=== PATIENT | female | born 1985 | race Caucasian/White ===

== ENCOUNTER 2017-11-29 03:00 | Emergency (ER) | payer OTHER ==
[~2017-11-29] VITALS: Ht 152.4 cm; Wt 73.0 kg
[~2017-11-29 03:00] MED LIST: NAPROXEN500 MG PO
== END 2017-11-29 12:01 | disposition home or self-care (01) ==
LOC: ER 03:00
DX: N83.291 Other ovarian cyst, right side (principal)

== ENCOUNTER 2020-08-14 11:53 | Outpatient (CLI) | payer OTHER | END 2020-08-14 11:57 | disposition home or self-care (01) | LOC: SONOGRAMA 11:53 | PROVIDERS: ATTEND Pathology Anatomic Pathology & Clinical Pathology | DX: E04.1 Nontoxic single thyroid nodule (principal) ==

== ENCOUNTER 2025-03-25 18:36 | Emergency (ER) | payer OTHER ==
[~2025-03-25] VITALS: Ht 160 cm; Wt 113.4 kg
[2025-03-25] MEDS ORDERED: KETOROLAC TROMETHAMINE 30 MG VIAL IV ONE (20:30)
[2025-03-25] MEDS ORDERED: 0.9 % SODIUM CHLORIDE 1,000 ML IV ONE (20:30)
[2025-03-25] MEDS ORDERED: FAMOTIDINE/PF 20 MG/2 ML VIAL IV ONE (20:30)
[2025-03-25] MEDS ORDERED: ONDANSETRON HCL 2 MG/ML VIAL IV ONE (20:30)
[2025-03-25 21:14] LABS: BASO % 0.0 % (0.1-1.2); EOS # 0.00 (0.04-0.54); EOS % 0.0 % (0.7-7.0); LYMPH # 0.57 (1.18-3.74); LYMPH % 11.3 % (19.3-53.1); MEAN PLATELET VOLUME 11.60 fl (9.4-12.4); MONO # 0.06 (0.24-0.82); MONO % 1.2 % (4.7-12.5); NEUT # 4.35 (1.56-6.13); NEUT % 86.1 % (34.0-71.1); RED CELL DISTRIBUTION WIDTH 11.9 % (11.6-14.4)
[2025-03-25 21:34] LABS: INR 0.99
[2025-03-25 21:36] LABS: URINE APPEARANCE Clear; URINE BILIRRUBIN Negative (NEGATIVE); URINE BLOOD Negative; URINE COLOR Yellow; URINE KETONE Trace (NEGATIVE); URINE LEUKOCYTE Negative; URINE NITRATE Negative; URINE PROTEIN Negative (NEGATIVE); URINE UROBILINOGEN 0.2 E.U./dl
[2025-03-25 21:38] LABS: URINE BACTERIA 1244.3 uL (0.0-1933); URINE EPITHELIAL CELLS 8.7 uL (0.0-38.8); URINE RBC 10.9 uL (0.0-20.8); URINE WBC 7.0 uL (0.0-23.2)
[2025-03-25 21:40] LABS: ALT/SGPT 26.0 U/L (12-78); AST/SGOT 13.0 U/L (15-37); BILIRUBIN TOTAL 0.41 mg/dL (0.3-1.2); BUN CREA RATIO 13.0 (7.0-25.0); CREATININE SERUM 0.88 mg/dL (0.55-1.02); GFR 70.81; GLOBULINA 3.9 G/DL (2.4-3.5); OSMOLALITY SERUM 288.0 MOSM/KG (275-295)
[2025-03-25 21:42] LABS: GLUCOSE FASTING 234.0 mg/dL (65-100)
[2025-03-25 21:45] LABS: URINE CAST 0.14 uL (0.0-1.40); URINE GLUCOSE >=1000 MG/DL (NEGATIVE)
[2025-03-25] MEDS ORDERED: METOCLOPRAMIDE10 MG PO (22:55)
[2025-03-25] MEDS ORDERED: METOCLOPRAMIDE HCL 5 MG/ML VIAL IV ONE (23:00)
== END 2025-03-26 00:08 ==
LOC: ER 18:36
PROVIDERS: General Practice
DX: R73.9 Hyperglycemia, unspecified (principal); K31.84 Gastroparesis; R10.9 Unspecified abdominal pain

== ENCOUNTER 2025-06-11 12:13 | Emergency (ER) | payer OTHER ==
[~2025-06-11] VITALS: Ht 152.4 cm; Wt 77.1 kg
[~2025-06-11 12:13] MED LIST changes: +METOCLOPRAMIDE10 MG PO
[2025-06-11] MEDS ORDERED: RAYOS1 MG (14:21)
[2025-06-11] MEDS ORDERED: CEPHALEXIN250 MG (14:22)
[2025-06-11] MEDS ORDERED: DEXAMETHASONE SODIUM PHOSPHATE 4 MG/ML VIAL IM ONE (15:00)
[2025-06-11] MEDS ORDERED: KETOROLAC TROMETHAMINE 60 MG VIAL IM ONE ×2 (15:00→15:19)
[2025-06-11] MEDS ORDERED: OFLOXACIN 0.3% 5ML DROPS (OTIC) OT ONE (15:00)
[2025-06-11] MEDS ORDERED: DEXAMETHASONE SODIUM PHOSPHATE 4 MG/ML VIAL ONE (15:19)
[2025-06-11 17:36] LABS: BASO % 0.3 % (0.1-1.2); EOS # 0.02 (0.04-0.54); EOS % 0.2 % (0.7-7.0); LYMPH # 3.03 (1.18-3.74); LYMPH % 31.9 % (19.3-53.1); MEAN PLATELET VOLUME 11.80 fl (9.4-12.4); MONO # 0.71 (0.24-0.82); MONO % 7.5 % (4.7-12.5); NEUT # 5.62 (1.56-6.13); NEUT % 59.0 % (34.0-71.1); RED CELL DISTRIBUTION WIDTH 12.6 % (11.6-14.4)
[2025-06-11 17:55] LABS: URINE APPEARANCE Clear; URINE BILIRRUBIN Negative (NEGATIVE); URINE BLOOD Negative; URINE COLOR Dark Yellow; URINE GLUCOSE Negative (NEGATIVE); URINE KETONE Trace (NEGATIVE); URINE LEUKOCYTE Negative; URINE NITRATE Negative; URINE PROTEIN Trace (NEGATIVE); URINE UROBILINOGEN 1.0 E.U./dl
[2025-06-11 18:01] LABS: URINE BACTERIA 13.1 uL (0.0-1933); URINE EPITHELIAL CELLS 41.2 uL (0.0-38.8); URINE RBC 17.8 uL (0.0-20.8); URINE WBC 3.6 uL (0.0-23.2)
[2025-06-11 18:14] LABS: URINE CAST 0.00 uL (0.0-1.40)
[2025-06-11 18:18] LABS: COVID-19 AG NEGATIVE (NEGATIVE)
[2025-06-11 18:33] LABS: ALT/SGPT 29 U/L (12-78); AST/SGOT 18 U/L (15-37); BILIRUBIN TOTAL 0.30 mg/dL (0.3-1.2); BUN CREA RATIO 24 (7.0-25.0); CREATININE SERUM 0.68 mg/dL (0.55-1.02); GFR 95.35; GLOBULINA 3.2 G/DL (2.4-3.5); GLUCOSE FASTING 89 mg/dL (65-100); OSMOLALITY SERUM 286 MOSM/KG (275-295)
[2025-06-11] MEDS ORDERED: CIPROFLOX-DEXA7.5 ML OT (19:00)
== END 2025-06-11 20:01 | disposition home or self-care (01) ==
LOC: ER 12:13
DX: H60.91 Unspecified otitis externa, right ear (principal); R51.9 Headache, unspecified; Z20.822 Contact with and (suspected) exposure to COVID-19